=== PATIENT | female | born 1965 | race Hispanic/Latino ===

== ENCOUNTER 2017-10-30 14:42 | Outpatient (CLI) | payer BC ==
--- NOTE | 2017-10-30 15:47 | MMO ---
SCREENING MAMMOGRAPHY: 10/30/17 COMPARISON: 09/11/16 and 09/07/15. HISTORY: Screening mammography. FINDINGS: The patient's mammogram is interpreted with the assistance of computer aided detection. There are scattered fibroglandular densities present. There are benign calcifications noted bilaterally. No dominant mass or architectural distortion. No concerning microcalcifications. No significant inter neelam change. IMPRESSION: BI-RADS 2: Benign Finding(s) Routine annual screening mammography (for women over age 40). POS: NAEEM
== END 2017-10-30 14:43 | disposition home or self-care (01) ==
LOC: SCSMAMMO 14:42
PROVIDERS: ATTEND Family Medicine
DX: Z12.31 Encounter for screening mammogram for malignant neoplasm of breast (principal)
CPT/HCPCS: 77067

== ENCOUNTER 2018-10-31 15:18 | Outpatient (CLI) | payer BC ==
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
== END 2018-10-31 15:19 | disposition home or self-care (01) ==
LOC: SCSMAMMO 15:18
PROVIDERS: ATTEND Family Medicine
DX: Z12.31 Encounter for screening mammogram for malignant neoplasm of breast (principal); Z80.3 Family history of malignant neoplasm of breast; Z90.12 Acquired absence of left breast and nipple
CPT/HCPCS: 77067

== ENCOUNTER 2019-03-09 00:21 | Emergency (ER) | payer BC ==
[2019-03-09] MEDS ORDERED: predniSONE 20 MG TAB ONE (00:39)
[2019-03-09] MEDS ORDERED: Famotidine 20 MG TAB ONE (00:39)
[2019-03-09] MEDS ORDERED: diphenhydrAMINE 25 MG CAP ONE (00:39)
== END 2019-03-09 00:52 | disposition home or self-care (01) ==
LOC: ERS 00:21
DX: T78.40XA Allergy, unspecified, initial encounter (principal); E78.00 Pure hypercholesterolemia, unspecified; Z79.52 Long term (current) use of systemic steroids
CPT/HCPCS: 99283; J7512; Q0163

== ENCOUNTER 2019-11-02 15:29 | Outpatient (CLI) | payer BC ==
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
== END 2019-11-02 15:30 | disposition home or self-care (01) ==
LOC: BICMAMMO 15:29
PROVIDERS: ATTEND Family Medicine
DX: Z12.31 Encounter for screening mammogram for malignant neoplasm of breast (principal); Z80.3 Family history of malignant neoplasm of breast; Z91.89 Other specified personal risk factors, not elsewhere classified
CPT/HCPCS: 77063; 77067

== ENCOUNTER 2020-11-03 15:13 | Outpatient (CLI) | payer BC | END 2020-11-03 15:14 | disposition home or self-care (01) | LOC: BICMAMMO 15:13 | PROVIDERS: ATTEND Family Medicine | DX: Z12.31 Encounter for screening mammogram for malignant neoplasm of breast (principal); Z98.890 Other specified postprocedural states | CPT/HCPCS: 77063; 77067 ==

== ENCOUNTER 2021-11-07 12:34 | Outpatient (CLI) | payer BC | END 2021-11-07 12:35 | disposition home or self-care (01) | LOC: BICMAMMO 12:34 | PROVIDERS: ATTEND Family Medicine | DX: Z12.31 Encounter for screening mammogram for malignant neoplasm of breast (principal); Z98.890 Other specified postprocedural states; Z80.3 Family history of malignant neoplasm of breast | CPT/HCPCS: 77063; 77067 ==

== ENCOUNTER 2022-11-30 11:06 | Outpatient (CLI) | payer BC | END 2022-11-30 11:07 | disposition home or self-care (01) | LOC: BICMAMMO 11:06 | PROVIDERS: ATTEND Family Medicine | DX: Z12.31 Encounter for screening mammogram for malignant neoplasm of breast (principal); Z91.89 Other specified personal risk factors, not elsewhere classified; Z98.890 Other specified postprocedural states; Z80.3 Family history of malignant neoplasm of breast | CPT/HCPCS: 77063; 77067 ==